=== PATIENT | female | born 1995 | race Caucasian/White ===

== ENCOUNTER 2018-01-26 06:39 | Emergency (ER) | payer OTHER, SELFPAY ==
[2018-01-26 06:40] VITALS: BP 141/70; PULSE 77; RESP 20; TEMP 36.2; O2SAT 100; BMI 22.8
[2018-01-26] MEDS: 0.9% Normal Saline 1,000 ML 1000 ML IV (06:46)
[2018-01-26] MEDS: Ondansetron 4 MG/2 ML Vial IV (06:46)
[2018-01-26 07:07] LABS: ALB/GLOB Ratio 1.2 RATIO (0.9-2.4); AST(SGOT) 13 U/L (15-37); Alanine Aminotransfer ALT/SGPT 17 U/L (13-56); Albumin, Serum 4.4 g/dL (3.2-5.0); Alkaline Phosphatase 57 U/L (45-117); Anion Gap 12 (5-15); BUN 17 mg/dL (7-18); BUN/Creat Ratio 23.7 RATIO (10-20); Calcium,Total 9.4 mg/dL (8.5-10.1); Chloride 108 mmol/L (98-107); Creatinine, Serum 0.72 mg/dL (0.55-1.02); EST Glomerular Filtration Rate 109 mL/min (>60); Est Glom Filt Rate - Afr Amer 131 mL/min (>60); Estimated Creatinine Clearance 102.24 ml/min; Globulin 3.6 g/dL (2.2-4.2); Glucose 102 mg/dL (74-106); Potassium 3.5 mmol/L (3.5-5.1); Sodium Level 141 mmol/L (136-145)
[2018-01-26 07:09] LABS: Absolute Lymphocyte Count 3.54 X10^3/ul (0.83-4.51); Absolute Neutrophil Count 8.3 X10^3/uL (2.0-7.7); Basophil# 0.03 X10^3/uL; Basophil% 0.2 % (0-1); Eosinophil# 0.04 X10^3/uL; Eosinophils% 0.3 % (0-5); Hematocrit 33.9 % (37-47); Hemoglobin 10.5 g/dl (12.0-15.0); Lymphocyte # 3.54 X10^3/ul (4.0); Lymphocyte % 28.4 % (19-41); Mean Corpuscular Hgb 23.1 pg (27.0-32.0); Mean Corpuscular Volume 74.5 fL (81-99); Mean Platelet Vol. 9.3 fl (6.2-12.0); Monocyte# 0.51 X10^3/uL; Monocyte% 4.1 % (0-10); Neutrophil # 8.31 X10^3/uL (2.7-7.7); Neutrophil % 66.8 % (47-70); Platelet Count 323 K/mm3 (150-450); RBC Distribution Width CV 14.7 % (11.6-14.6); RBC Distribution Width SD 39.4 fl (35.1-43.9); Red Blood Count 4.55 M/mm3 (4.2-5.4); White Blood Count 12.5 K/mm3 (4.4-11.0)
--- NOTE | 2018-01-26 07:10 | ED.VISSUMM ---
- ER Visit Summary Date of Service: 01/26/18 Chief Complaint: Nausea, vomiting, and diarrhea History of Present Illness: The patient is a 22 F with nausea, vomiting, and diarrhea. Symptoms started at 4:15 a.m. today, just about 3 hours ago. Patient also reports chills and the feeling that she is not breathing deeply enough. She denies any other associated symptoms. Denies any history of this in the past. Denies any medical or surgical history. She does take control pills. She took 2 pills yesterday because she was catching up. Reports occasional alcohol use, but denies smoking or drug use. Physical Examination: Afebrile and vital signs unremarkable except for a blood pressure of 141/70 and a respiratory rate of 20. Patient is sitting upright and has some mild shivering. She is alert and oriented. She is acting appropriate, but appears ill. She is not toxic or in distress. Skin is slightly pale. No diaphoresis. Mucous membranes are moist. Heart is regular. Lungs are clear. Abdomen soft and nontender. Test Results: Labs, urinalysis, test pending. No indication for imaging. Emergency Department Course and Treatment: Patient was treated with fluids and Zofran while awaiting results. Patient had no further vomiting or diarrhea. Urinalysis unremarkable. test negative. CMP unremarkable. CBC showed a white count of 12.5. This may be infectious or may even be from vomiting. This is nonspecific. Hemoglobin 10.5. Patient reports no history of anemia. No change in her diet. No new bleeding. She does have heavy periods, and this is normal for her. No jaundice or change in skin color. No blood thinner use. Patient will follow-up as an outpatient for recheck of her labs and for management of anemia. We will prescribe Imodium and Zofran for her symptoms. Stay hydrated. Return for any new or worsening symptoms. She may develop sepsis or other infections later in the course of this illness. Risks were discussed. Treatment Plan: As above Disposition: Discharge Impression: 1. Nausea, vomiting, diarrhea 2. Anemia This note was generated with [employer] software. It may contain incorrect words, spelling, and punctuation that were not noted in review of the chart prior to signing ED Disposition - Plan for ED Patient: Chief Complaint: Nausea/Vomiting/Diarrhea Referrals: [facility] Doctor,Out of [NON-STAFF] -
[2018-01-26 07:12] LABS: Differential Indicated SCAN CRITERIA MET; POSITIVE COUNT NO; POSITIVE DIFFERENTIAL NO; POSITIVE MORPHOLOGY YES
[2018-01-26 07:38] LABS: Pregnancy, Serum, hCG Quali. NEGATIVE Negative (0-9 Nonpreg)
[2018-01-26 08:13] LABS: Color, Urine Yellow (Yellow); Glucose, Dipstick Normal (Normal); Ketone-Dipstick 50 mg/dl (Negative); Leukocyte Esterase-Dipstick 25 /ul (Negative); Nitrite-Dipstick Negative (Negative); Occult Blood-Urine Negative /ul (Negative); Protein-Dipstick 15 mg/dl (Negative); Specific Gravity, Urine 1.015 (1.002-1.030); Urine Bilirubin Dipstick Negative (Negative); Urine Clarity Clear (Clear); Urine Urobilinogen Normal (Normal)
[2018-01-26 08:30] LABS: Bacteria 2+ /hpf (None Seen); Red Blood Cells-Urine 0-5 SEEN /hpf (0-5); Squamous Epithelial Cells - UA 0-5 SEEN /hpf (5-10); White Blood Cells 0-5 SEEN /hpf (0-5)
[2018-01-26 08:31] LABS: Mucous, Urine RARE /hpf (<or=2+)
--- NOTE | 2018-01-26 09:00 | DCINST.ED_ITS ---
ED Disposition - Plan for ED Patient: Chief Complaint: Nausea/Vomiting/Diarrhea Instructions: ED Vomiting Diarrhea Nonspecific Ad Prescriptions: Loperamide [Imodium] 2 mg PO Q6H PRN PRN #20 cap PRN Reason: Diarrhea Ondansetron [Zofran Odt] 4 mg PO Q8H PRN PRN #10 tab PRN Reason: Nausea Additional Instructions: Follow-up with [facility]
[2018-01-26 09:06] VITALS: PULSE 69; RESP 14; O2SAT 100
== END 2018-01-26 09:07 | disposition home or self-care (01) ==
PROVIDERS: Emergency Medicine; Emergency Provider Emergency Medicine
DX: R11.2 Nausea with vomiting, unspecified (principal); R19.7 Diarrhea, unspecified; D64.9 Anemia, unspecified; R06.00 Dyspnea, unspecified
CPT/HCPCS: 80053; 81001; 84703; 85025; 96361; 96374; 99285; J7030; J2405

== ENCOUNTER 2018-03-15 12:05 | Emergency (ER) | payer OTHER, SELFPAY ==
[2018-03-15 12:07] VITALS: BP 119/73; PULSE 69; RESP 17; TEMP 37.4; O2SAT 100; BMI 21.2
--- NOTE | 2018-03-15 12:16 | EKG12_ITS ---
Test Reason : LEFT LOWER CP Blood Pressure : / mmHG Vent. Rate : 071 BPM Atrial Rate : 071 BPM P-R Int : 124 ms QRS Dur : 090 ms QT Int : 356 ms P-R-T Axes : 002 043 022 degrees QTc Int : 386 ms Normal sinus rhythm Normal ECG Confirmed by WON BARONE ([id number]), research editor CLAUDIA MARCANO ([id number] on 03/18/2018 2:46:10 PM Referred By: Confirmed By:WON BARONE
--- NOTE | 2018-03-15 12:24 | NURSING ---
NO OLD EKGS
--- NOTE | 2018-03-15 13:48 | ED.DCSUM_ITS ---
- ER Visit Summary Date of Service: 03/15/18 Chief Complaint: Chest pain History of Present Illness: The patient is a 22 F presenting with chest pain. Her pain has been continuous over the past week pain and is located in the left lower chest. She denies cough or fever. She has mild shortness of breath. She states this is worse with deep breathing. No known medical problems. No PE/ DVT risk factors. Physical Examination: Vitals are stable. Patient is afebrile. Alert no acute distress. HEENT exam is unremarkable. Neck is supple. Lungs are clear and equal bilaterally. Left lower chest tenderness to palpation with no crepitus Heart is regular rate and rhythm. Abdomen is soft nontender nondistended. No guarding or rebound Extremities are unremarkable. Skin is warm and dry. Remainder of exam is unremarkable. Emergency Department Course and Treatment: Patient is given Toradol IM. She continues to have pain and was given morphine and Zofran IV with improvement. EKG is sinus rate of 71 with no acute changes. Left rib series shows no acute process. When patient was in x-ray while standing she began to feel dizzy and nearly passed out. She believes this was from having her blood drawn. She was given IV fluids with improvement. CBC shows a hemoglobin 11.3. Chemistries unremarkable. Troponin negative. D-dimer negative. HCG negative. She is feeling improved on reevaluation. She is given a prescription for Naprosyn. Advised to follow-up with Dr. Ramirez florist supplies salesperson for no doc. Advised return ED if worsening complaints. Disposition: Discharge home Impression: Chest wall pain This note was generated with [employer] dictation software. It may contain incorrect words, spelling, and punctuation that were not noted in review of the chart prior to signing ED Disposition - Plan for ED Patient: Chief Complaint: Chest Pain Instructions: ED Strain Chest Wall Prescriptions: Naproxen [Naprosyn] 500 mg PO BID PRN #20 tablet Referrals: Karina Ramirez MD [STAFF PHYSICIAN] - Care Physician,No Primary [Primary Care Provider] -
--- NOTE | 2018-03-15 13:51 | RAD_ITS ---
STUDY: X-RAY - UNILATERAL RIBS ( LEFT ) WITH CHEST REASON FOR EXAM: Female, 22 years old. 71 history of left lower anterior chest and rib pain. TECHNIQUE - RIBS: 2 view(s) of the ribs. TECHNIQUE - CHEST: Single PA view of the chest. COMPARISON: None. FINDINGS - RIBS: Normal visualized ribs without a demonstrated fracture. FINDINGS - CHEST: The lungs are clear and expanded. There is no demonstrated pleural abnormality. Normal size heart. Normal mediastinum and gisel. Normal visualized pulmonary arteries. Normal visualized aortic arch and descending thoracic aorta. Normal visualized thoracic spine. Normal visualized ribs, clavicles, and shoulders. There is no demonstrated abnormality of the visualized soft tissue structures of the upper abdomen. RAD/Ribs Uni Min 3V w/PA Chest IMPRESSION: RIBS: Normal x-ray examination of the ribs. CHEST: Normal x-ray examination of the chest. Electronically Signed: Mark Uribe MD at 14:20 EDT Tel [phone], Service support ,
[2018-03-15] MEDS: Ketorolac 30 MG/ML Syringe IM (14:00)
[2018-03-15 14:10] VITALS: BP 123/69; PULSE 71; RESP 14; O2SAT 100
[2018-03-15] MEDS: 0.9% Normal Saline 1,000 ML 999 ML IV (14:11)
[2018-03-15 14:13] LABS: Pregnancy, Serum, hCG Quali. NEGATIVE Negative (0-9 Nonpreg)
[2018-03-15 14:14] LABS: D-Dimer Quantitative (DVT/PE) < 0.27 FEU/ug/m (0.27-0.49)
[2018-03-15] MEDS: Morphine 4 MG/ML Syringe IV (14:22)
[2018-03-15] MEDS: Ondansetron 4 MG/2 ML Vial IV (14:22)
[2018-03-15 15:40] LABS: Absolute Neutrophil Count 3.8 X10^3/uL (2.0-7.7); Basophil# 0.02 X10^3/uL; Basophil% 0.3 % (0-1); Eosinophil# 0.08 X10^3/uL; Eosinophils% 1.2 % (0-5); Hematocrit 36.4 % (37-47); Hemoglobin 11.3 g/dl (12.0-15.0); Lymphocyte % 37.3 % (19-41); Mean Corpuscular Hgb 23.5 pg (27.0-32.0); Mean Corpuscular Volume 75.7 fL (81-99); Mean Platelet Vol. 10.3 fl (6.2-12.0); Monocyte# 0.33 X10^3/uL; Monocyte% 4.9 % (0-10); Neutrophil # 3.77 X10^3/uL (2.7-7.7); Neutrophil % 56.2 % (47-70); Platelet Count 296 K/mm3 (150-450); RBC Distribution Width CV 16.4 % (11.6-14.6); RBC Distribution Width SD 44.5 fl (35.1-43.9); Red Blood Count 4.81 M/mm3 (4.2-5.4); White Blood Count 6.7 K/mm3 (4.4-11.0)
[2018-03-15 15:43] LABS: POSITIVE COUNT NO; POSITIVE DIFFERENTIAL NO; POSITIVE MORPHOLOGY NO
--- NOTE | 2018-03-15 15:52 | ED.DEP ---
ED Disposition - Plan for ED Patient: Chief Complaint: Chest Pain Instructions: ED Strain Chest Wall Prescriptions: Naproxen [Naprosyn] 500 mg PO BID PRN #20 tablet Referrals: Care Physician,No Primary [Primary Care Provider] - Karina Ramirez MD [STAFF PHYSICIAN] -
[2018-03-15 16:02] LABS: ALB/GLOB Ratio 1.1 RATIO (0.9-2.4); AST(SGOT) 14 U/L (15-37); Alanine Aminotransfer ALT/SGPT 15 U/L (13-56); Albumin, Serum 4.3 g/dL (3.2-5.0); Alkaline Phosphatase 60 U/L (45-117); Anion Gap 7 (5-15); BUN 13 mg/dL (7-18); BUN/Creat Ratio 16.8 RATIO (10-20); Calcium,Total 9.3 mg/dL (8.5-10.1); Chloride 111 mmol/L (98-107); Creatinine, Serum 0.78 mg/dL (0.55-1.02); EST Glomerular Filtration Rate 99 mL/min (>60); Est Glom Filt Rate - Afr Amer 120 mL/min (>60); Estimated Creatinine Clearance 94.38 ml/min; Globulin 3.9 g/dL (2.2-4.2); Glucose 79 mg/dL (74-106); Lipase 142 U/L (73-393); Potassium 4.2 mmol/L (3.5-5.1); Protein, Total 8.2 g/dL (6.4-8.2); Sodium Level 141 mmol/L (136-145)
[2018-03-15 16:16] VITALS: BP 133/74; PULSE 75; RESP 14; O2SAT 98
[2018-03-15 16:34] VITALS: BP 108/59; PULSE 91; RESP 13; O2SAT 99
== END 2018-03-15 16:39 | disposition home or self-care (01) ==
PROVIDERS: Emergency Provider Emergency Medicine
DX: R07.89 Other chest pain (principal); R06.02 Shortness of breath
CPT/HCPCS: 71101; 80053; 83690; 84484; 84703; 85025; 85379; 93005; 96361; 96372; 96374; 96375; 99284; J7030; A4216; J2405